=== PATIENT | male | born 1950 | race African-American/Black ===

== ENCOUNTER → 2017-04-16 | Outpatient (CLI) | payer MEDICARE, OTHER ==
--- NOTE | ~2017-04-16 | US77 ---
[facility] A Service of [facility] RADIOLOGY TEXT RESULTS PATIENT: MANN AGUIRRE LOCATION: [facility] : 50 UNIT #: [id number] AGE: [address]: Costa Weeks MD SEX: M ORDER DR: [id number] [facility] [address] [place], [place] [address] [id number] O MR#: [id number] Acc #: [id number] NAME: MANN AGUIRRE : 1950 SEX: M STUDY DATE/TIME: 04/16/2017 15:41 UNIT: [facility] ROOM: STUDY DESCRIPTION: US Kidney Bilateral Complete Attending Physician: Costa Weeks M.D. Referring Physician: Costa Weeks M.D. Ordering Physician: Costa Weeks M.D. Primary Care Physician: Costa Weeks M.D. MEDICAL IMAGING REPORT This report is preliminary unless electronic signature is present EXAM Bilateral renal ultrasound examination, 04/16/2017 HISTORY 66-year-old male with history of prostate cancer. TECHNIQUE Li-scale ultrasound imaging of both kidneys and the urinary bladder. FINDINGS Both kidneys are normal in size and ultrasound appearance. Renal length measures about 9.3 cm on the right and 10.0 cm on the left. There was no evidence of upper urinary tract obstruction. No visible nephrolithiasis or significant renal mass. No perinephric fluid collection. Incidental note is made of a 4.9 cm benign-appearing simple cyst in the right hepatic lobe. The urinary bladder is mostly empty and is incompletely visualized. IMPRESSION Negative bilateral renal ultrasound examination. No evidence of upper urinary tract obstruction. Dictated by... Rajiv Rogers M.D. THIS IS AN ELECTRONICALLY VERIFIED REPORT Rajiv Rogers M.D. at 04/17/2017 9:47 AM TASNEEM/jenn TD: 04/17/2017 04:05 [facility] A Service of [facility] RADIOLOGY TEXT RESULTS PATIENT: [facility]IRRE [id number] [birth year] UNIT #: [id number] AGE: [address]: Costa Weeks MD SEX: M ORDER DR: JOB #: [id number] MEDICAL IMAGING REPORT Page 1 of 1 COPY
== END | disposition home or self-care (01) ==
LOC: CGUS 15:22
DX: Z08 Encounter for follow-up examination after completed treatment for malignant neoplasm (principal); Z85.46 Personal history of malignant neoplasm of prostate
CPT/HCPCS: 76770